=== PATIENT | female | born 1985 | race Caucasian/White ===

== ENCOUNTER 2020-02-02 10:24 | Emergency (ER) | payer OTHER ==
[~2020-02-02] VITALS: Ht 167.6 cm; Wt 104.8 kg
[2020-02-02] MEDS ORDERED: KETO10TA2 PO (15:00)
[2020-02-02] MEDS ORDERED: CLONAZEPAM1 MG PO (15:00)
[2020-02-02] MEDS ORDERED: SKELAXIN800 MG PO (15:00)
== END 2020-02-02 15:46 | disposition home or self-care (01) ==
LOC: ER 10:24
DX: M62.830 Muscle spasm of back (principal); M54.89 Other dorsalgia; F41.8 Other specified anxiety disorders

== ENCOUNTER → 2020-05-27 | Emergency (ER) | payer OTHER ==
[~2020-05-27] VITALS: Ht 167.6 cm; Wt 108.9 kg
[~2020-05-27] MED LIST: CLONAZEPAM1 MG PO; KETO10TA2 PO; ORPHENADRINE C100 MG PO; SKELAXIN800 MG PO
== END | disposition home or self-care (01) ==
LOC: ER 13:17
DX: M94.0 Chondrocostal junction syndrome [Tietze] (principal)

== ENCOUNTER 2021-10-08 08:41 | Emergency (ER) | payer OTHER ==
[~2021-10-08] VITALS: Ht 175.3 cm; Wt 97.5 kg
== END 2021-10-08 12:36 ==
LOC: ER 08:41
DX: U07.1 COVID-19 (principal)

== ENCOUNTER 2021-10-10 09:28 | Outpatient (CLI) | payer OTHER | END 2021-10-10 10:30 | disposition home or self-care (01) | LOC: ASH CLINIC 09:28 | PROVIDERS: ATTEND General Practice | DX: U07.1 COVID-19 (principal) ==

== ENCOUNTER 2022-03-09 10:26 | Emergency (ER) | payer OTHER ==
[~2022-03-09] VITALS: Ht 167.6 cm; Wt 99.8 kg
[2022-03-09] MEDS ORDERED: TUSNEL LIQUID178 ML PO (13:21)
[2022-03-09] MEDS ORDERED: OSEL75CA PO (13:21)
[2022-03-09] MEDS ORDERED: DOLOGEN CAPLET1 EACH PO (13:21)
== END 2022-03-09 13:32 | disposition home or self-care (01) ==
LOC: ER 10:26
DX: J09.X2 Influenza due to identified novel influenza A virus with other respiratory manifestations (principal)

== ENCOUNTER 2022-06-19 04:27 | Emergency (ER) | payer OTHER ==
[~2022-06-19] VITALS: Ht 167.6 cm; Wt 100.7 kg
[~2022-06-19 04:27] MED LIST changes: +DOLOGEN CAPLET1 EACH PO; +OSEL75CA PO; +TUSNEL LIQUID178 ML PO
[2022-06-19] MEDS ORDERED: NORFLEX100MG PO (09:31)
[2022-06-19] MEDS ORDERED: ZITHROMAX500 MG PO (09:31)
== END 2022-06-19 10:16 | disposition home or self-care (01) ==
LOC: ER 04:27
DX: B34.9 Viral infection, unspecified (principal); Z20.822 Contact with and (suspected) exposure to COVID-19

== ENCOUNTER 2022-12-27 14:34 | Emergency (ER) | payer OTHER ==
[~2022-12-27] VITALS: Ht 167.6 cm; Wt 99.8 kg
[~2022-12-27 14:34] MED LIST changes: +NORFLEX100MG PO; +ZITHROMAX500 MG PO
[2022-12-27] MEDS ORDERED: ZITHROMAX500 MG PO (18:12)
[2022-12-27] MEDS ORDERED: BUDESONIDE0.5 MG/2 M IH (18:12)
[2022-12-27] MEDS ORDERED: ALBUTEROL2.5 MG/3 M IH (18:12)
== END 2022-12-27 18:24 | disposition home or self-care (01) ==
LOC: ER 14:34
PROVIDERS: Emergency Medicine
DX: J18.9 Pneumonia, unspecified organism (principal); J40 Bronchitis, not specified as acute or chronic; Z20.822 Contact with and (suspected) exposure to COVID-19

== ENCOUNTER 2023-01-01 14:55 | Emergency (ER) | payer OTHER ==
[~2023-01-01] VITALS: Ht 167.6 cm; Wt 99.8 kg
[~2023-01-01 14:55] MED LIST changes: +ALBUTEROL2.5 MG/3 M IH; +BUDESONIDE0.5 MG/2 M IH
== END 2023-01-01 18:24 | disposition home or self-care (01) ==
LOC: ER 14:55
DX: J40 Bronchitis, not specified as acute or chronic (principal)

== ENCOUNTER 2023-05-16 09:28 | Emergency (ER) | payer OTHER ==
[~2023-05-16] VITALS: Ht 167.6 cm; Wt 99.8 kg
[2023-05-16] MEDS ORDERED: KETO10TA2 PO (12:06)
[2023-05-16] MEDS ORDERED: KETO10TA2 (13:16)
== END 2023-05-16 14:38 | disposition home or self-care (01) ==
LOC: ER 09:28
DX: S83.8X1A Sprain of other specified parts of right knee, initial encounter (principal); X58.XXXA Exposure to other specified factors, initial encounter; Y93.89 Activity, other specified; Y92.89 Other specified places as the place of occurrence of the external cause; Y99.8 Other external cause status

== ENCOUNTER 2023-05-19 19:41 | Emergency (ER) | payer OTHER ==
[~2023-05-19] VITALS: Ht 167.6 cm; Wt 99.8 kg
[~2023-05-19 19:41] MED LIST changes: +KETO10TA2
[2023-05-19 22:53] LABS: HEMATOCRIT 35.8 % (36.0-45.00); HEMOGLOBIN 11.8 g/dL (12.0-15.00); MEAN CELL VOLUME 90.8 fL (80.00-100.00); MEAN CORPUSCULAR HGB CONC 33.1 g/dl (32.0-36.0); PLATELET COUNT 335 K/uL (150-450); RED BLOOD COUNT 3.95 M/uL (4.00-6.00); RED CELL DISTRIBUTION WIDTH 13.3 % (11.5-14.5)
== END 2023-05-20 00:16 | disposition home or self-care (01) ==
LOC: ER 19:42
PROVIDERS: General Practice
DX: S80.11XA Contusion of right lower leg, initial encounter (principal); W19.XXXA Unspecified fall, initial encounter; Y93.9 Activity, unspecified; Y92.9 Unspecified place or not applicable; Y99.9 Unspecified external cause status

== ENCOUNTER 2023-05-21 09:52 | Emergency (ER) | payer OTHER ==
[~2023-05-21] VITALS: Ht 167.6 cm; Wt 99.8 kg
[2023-05-21 11:54] LABS: HEMATOCRIT 37.7 % (36.0-45.00); HEMOGLOBIN 12.7 g/dL (12.0-15.00); MEAN CELL VOLUME 90.7 fL (80.00-100.00); MEAN CORPUSCULAR HEMOGLOBIN 30.6 pg (27.00-32.0); MEAN CORPUSCULAR HGB CONC 33.7 g/dl (32.0-36.0); PLATELET COUNT 328 K/uL (150-450); RED BLOOD COUNT 4.15 M/uL (4.00-6.00); RED CELL DISTRIBUTION WIDTH 13.4 % (11.5-14.5)
[2023-05-21 12:35] LABS: D DIMER 1.02 MG/L; PARTIAL THROMBOPLASTIN TIME 30.2 SECONDS (22.0-34.0)
[2023-05-21 12:36] LABS: INR 0.97; PROTHROMBIN TIME 10.2 SECONDS (9.0-11.5)
== END 2023-05-21 15:49 | disposition home or self-care (01) ==
LOC: ER 09:52
PROVIDERS: General Practice
DX: I87.2 Venous insufficiency (chronic) (peripheral) (principal)

== ENCOUNTER 2024-03-21 13:58 | Emergency (ER) | payer OTHER ==
[~2024-03-21] VITALS: Ht 167.6 cm; Wt 104.3 kg
[2024-03-21] MEDS ORDERED: AZITHROMYCIN 500 MG VIAL IV ONE (16:45)
[2024-03-21] MEDS ORDERED: METHYLPREDNISOLONE SOD SUCC 125 MG VIAL IV ONE (16:45)
[2024-03-21] MEDS ORDERED: IPRATROPIUM/ALBUTEROL SULFATE 3 ML AMPUL.NEB IH SCH (16:45)
[2024-03-21] MEDS ORDERED: GUAIFENESIN 200 MG/10 ML BLIST.PACK PO ONE (16:45)
[2024-03-21 22:50] LABS: ABG PO2 79.8 mmHg (80-100); ABG pCO2 30.6 mmHg (35-45); SaO2 96.5 %
[2024-03-21 22:51] LABS: BASE EXCESS -0.8 mmol/l; BICARBONATE 21.7 mmol/l (23-25); Tco2 22.7 mmol/l; o2 21 %
[2024-03-21 22:52] LABS: allen test SATISFACTORY; puncture site RADIAL RIGHT
== END 2024-03-21 20:41 | disposition home or self-care (01) ==
LOC: ER 13:59
PROVIDERS: Emergency Medicine
DX: J45.909 Unspecified asthma, uncomplicated (principal); J45.901 Unspecified asthma with (acute) exacerbation; Z20.822 Contact with and (suspected) exposure to COVID-19